=== PATIENT | male | born 1985 | race Caucasian/White ===

== ENCOUNTER 2017-05-23 21:11 | Emergency (ER) | payer MEDICAID, OTHER ==
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
== END 2017-05-23 23:55 | disposition home or self-care (01) ==
LOC: ER 21:11
DX: S39.012A Strain of muscle, fascia and tendon of lower back, initial encounter (principal); S29.012A Strain of muscle and tendon of back wall of thorax, initial encounter; V89.2XXA Person injured in unspecified motor-vehicle accident, traffic, initial encounter; Y93.89 Activity, other specified; Y92.89 Other specified places as the place of occurrence of the external cause; Y99.8 Other external cause status
CPT/HCPCS: 96374; 96375; Z7502; Z7610

== ENCOUNTER 2017-10-12 15:09 | Emergency (ER) | payer OTHER ==
--- NOTE | 2017-10-12 15:37 | ED Physician Chart ---
ED Chief Complaint/HPI - Patient Information Date Seen:: 10/12/17 Time Seen:: 15:32 Chief Complaint:: Left chest cage pain History of Present Illness:: 31 yo male had left chest cage pain by leaning the left chest against a piece of wood while lifting a weight 2 days ago. The pain would be worsened by taking a deep breath or cough. The left cage was tender to touch. Allergies:: Allergies Allergy/AdvReac Type Severity Reaction Status Date / Time No Known Allergies Allergy Verified 05/23/17 21:41 ED Review of Systems - Review of Systems General/Constitutional: No fever, No chills Skin: No skin lesions Head: No headache Eyes: No pain ENT: No earache Neck: No neck pain Cardio Vascular: Chest pain Pulmonary: No SOB GI: No nausea, No vomiting Musculoskeletal: Bone or joint pain ED Past Medical History - Past Medical History Past Medical History: No significant medical hx Social History: Non Smoker, No Alcohol, No Drug Use Surgical History: None Family Medical History - Family Member Mother History Unknown: Yes Ethnicity: Non- Living Status: Still Living Hx Family Cancer: No Hx Family Coronary Artery Disease: No Hx Family Congestive Heart Failure: No Hx Family Hypertension: No Hx Family Stroke: No Hx Family Diabetes: No ED Physical Exam - Physical Examination General/Constitutional: Awake, Alert Head: Atraumatic Eyes: PERRL Skin: No skin lesions ENMT: Nasal exam nl Neck: No nuchal rigidity Respiratory: No Wheeze/Rhonchi/Rales Other Respiratory comments:: Left anterior chest cage edge tenderness without ecchymosis or swelling Cardio Vascular: RRR, No murmur, gallop, rubs, NL S1 S2 GI: No tenderness/rebounding/guarding Extremities: normal strength in all extremities Neuro/Psych: No focal deficits ED Labs/Radiology/EKG Results - Radiology Results Results: left ribs x ray: No acute abnormalities ED Assessment - Assessment General Assessment: Left chest cage contusion Assessment/Comments:: Toradol 30mg IM x 1 D/c home Ibuprofen prn F/u PCP or return to ER if symptoms worsen ED Septic Shock - . Is Septic Shock (SBP<90, OR Lactate>4 mmol\L) present?: No ED Reassessment (Disposition) - Reassessment Reassessment Condition:: Improved - Patient Disposition Discharge/Transfer:: Home ED Discharge Plan - Patient Disposition Admit/Discharge/Transfer: PT DISCHARGED HOME Condition at Disposition: Improved Instructions: Contusion, [id number]
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
== END 2017-10-12 17:10 | disposition home or self-care (01) ==
LOC: ER 15:09
DX: S20.212A Contusion of left front wall of thorax, initial encounter (principal); X58.XXXA Exposure to other specified factors, initial encounter; Y93.89 Activity, other specified; Y92.89 Other specified places as the place of occurrence of the external cause; Y99.8 Other external cause status
CPT/HCPCS: 71101-TC-LT; Z7502

== ENCOUNTER 2018-10-11 15:44 | Emergency (ER) | payer OTHER ==
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
== END 2018-10-11 16:10 | disposition home or self-care (01) ==
LOC: ER 15:44
DX: L23.7 Allergic contact dermatitis due to plants, except food (principal)
CPT/HCPCS: Z7502

== ENCOUNTER 2019-03-30 18:21 | Emergency (ER) | payer OTHER ==
--- NOTE | 2019-03-30 18:54 | ED Physician Chart ---
ED Chief Complaint/HPI - Patient Information Date Seen:: 03/30/19 Time Seen:: 18:50 Chief Complaint:: eye pain History of Present Illness:: 33 yr old male with lt eye lid swelling possible stye Allergies:: Allergies Allergy/AdvReac Type Severity Reaction Status Date / Time No Known Allergies Allergy Verified 05/23/17 21:41 Vitals:: Vital Signs - 8 hr 03/30/19 18:43 Temp 98.0 F HR 89 RR 15 BP 117/77 O2 Sat % 99 ED Review of Systems - Review of Systems Eyes: Pain, Other (lt lower eyelid swelling) ED Past Medical History - Past Medical History Past Medical History: No significant medical hx Family Medical History - Family Member Mother History Unknown: Yes Ethnicity: Non- Living Status: Still Living Hx Family Cancer: No Hx Family Coronary Artery Disease: No Hx Family Congestive Heart Failure: No Hx Family Hypertension: No Hx Family Stroke: No Hx Family Diabetes: No ED Physical Exam - Physical Examination General/Constitutional: Awake, Well-developed, well-nourished, Alert, No distress, GCS 15, Non-toxic appearing, Ambulatory Head: Atraumatic Eyes: PERRL, EOMI Other Eyes comments:: lt lower eye lid swelling ossible stye Skin: Nl inspection, No rash, No skin lesions, No ecchymosis, Well hydrated, No lymphadenopathy ENMT: External ears, nose nl, Nasal exam nl, Lips, teeth, gums nl Neck: Nontender, Full ROM w/o pain, No JVD, No nuchal rigidity, No bruit, No mass, No stridor Respiratory: Nl effort/Exclusion, Clear to Auscultation, No Wheeze/Rhonchi/Rales Cardio Vascular: RRR, No murmur, gallop, rubs, NL S1 S2 GI: No tenderness/rebounding/guarding, No organomegaly, No hernia, Normal BS's, Nondistended, No mass/bruits, No McBurney tenderness : No CVA tenderness Extremities: No tenderness or effusion, Full ROM, normal strength in all extremities, No edema, Normal digits & nails Neuro/Psych: Alert/oriented, DTR's symmetric, Normal sensory exam, Normal motor strength, Judgement/insight normal, Mood normal, Normal gait, No focal deficits Misc: Normal back, No paraspinal tenderness ED Assessment - Assessment General Assessment: lt eye stye ED Septic Shock - . Is Septic Shock (SBP<90, OR Lactate>4 mmol\L) present?: No - <6hrs of presentation: Vital Signs: Vital Signs - 8 hr 03/30/ 18:43 Temp 98.0 F HR 89 RR 15 BP 117/77 O2 Sat % 99 ED Reassessment (Disposition) - Reassessment Reassessment:: lt eye pain stye - Aftercare/Follow up Instructions Aftercare/Follow-Up Instructions:: Counseled pt regarding lab results/diagnosis & need follow up Medication Prescribed:: gentamycin eye drops - Patient Disposition Discharge/Transfer:: Home Condition at Disposition:: Stable
== END 2019-03-30 19:00 | disposition home or self-care (01) ==
LOC: ER 18:21
DX: H00.015 Hordeolum externum left lower eyelid (principal); H57.12 Ocular pain, left eye
CPT/HCPCS: Z7502